=== PATIENT | female | born 1960 | race Native Hawaiian/Other Pacific Islander ===

== ENCOUNTER 2017-09-03 05:48 | Day surgery (SDC) | payer OTHER ==
[~2017-09-03] VITALS: Ht 30.5 cm; Wt 0.5 kg
== END 2017-09-03 08:22 | disposition home or self-care (01) ==
LOC: OR 05:48
PROC: 08RJ3JZ Replacement of Right Lens with Synthetic Substitute, Percutaneous Approach (ICD-10-PCS; principal; 2017-09-03)
DX: H25.811 Combined forms of age-related cataract, right eye (principal)
CPT/HCPCS: 66984; J2250; V2632

== ENCOUNTER 2017-10-08 06:48 | Day surgery (SDC) | payer OTHER | END 2017-10-08 09:22 | disposition home or self-care (01) | LOC: OR 06:48 | PROC: 08RK3JZ Replacement of Left Lens with Synthetic Substitute, Percutaneous Approach (ICD-10-PCS; principal; 2017-10-08) | DX: H25.812 Combined forms of age-related cataract, left eye (principal) | CPT/HCPCS: 66984; J0171; V2632 ==